=== PATIENT | male | born 1965 | race Caucasian/White ===

== ENCOUNTER 2017-09-09 16:46 | Emergency (ER) | payer OTHER, SELFPAY ==
[2017-09-09 16:55] VITALS: BP 117/78; PULSE 86; RESP 20; TEMP 37.5; O2SAT 100; BMI 26.6
--- NOTE | 2017-09-09 16:59 | DI.RAD.S_ITS ---
PROCEDURE: XR FOOT LT MIN 3V INDICATIONS: 51 year-old male with left foot injury and laceration. TECHNIQUE: 3 views of the foot were acquired. COMPARISON: None. FINDINGS: Bones: No fractures or dislocations. No suspicious bony lesions. Soft tissues: No radiopaque soft tissue foreign bodies. No tibiotalar joint effusion. Achilles tendon appears normal. IMPRESSION: No acute bony injuries of the left foot. No radiopaque soft tissue foreign bodies. Dictated by: Jl Buckley M.D. on 09/09/2017 at 17:15 Approved by: Jl Buckley M.D. on 09/09/2017 at 17:16
--- NOTE | 2017-09-09 17:01 | ED_ITS ---
HPI - Wound/Laceration General Chief Complaint: Wound/Laceration Stated Complaint: laceration to left foot, 5th digit Time Seen by Provider: 09/09/17 17:01 Source: patient and family Mode of arrival: ambulatory Limitations: no limitations History of Present Illness HPI narrative: Patient presents to the emergency department with a chief complaint of a laceration on his left 5th toe after jumping off a ladder. They are unclear what he cut his toe on. Tetanus is 7 years old. He was seen and evaluated by medics who think they can see tendon or bone. He denies other injury Onset (ago): hour(s) Extremity Location: Left: foot Place: outdoors Patient tetanus UTD: No Context: accidental Associated symptoms: pain Related Data Previous Rx's Medication Instructions Recorded cephalexin [Keflex] 500 mg PO QID 7 Days #28 cap 09/09/17 Allergies Allergy/AdvReac Type Severity Reaction Status Date / Time No Known Allergies Allergy Uncoded 07/12/17 12:52 Review of Systems Review of Systems All systems reviewed & are unremarkable except as noted in HPI and below Constitutional Denies chills, Denies fever(s), Denies lethargy and Denies weakness Eyes Denies change in vision, Denies eye discharge, Denies irritation and Denies loss of vision ENT Ears, Nose, Mouth, and Throat: Denies change in voice, Denies neck pain and Denies sore throat Cardiovascular Denies chest pain, Denies irregular heart rhythm, Denies lightheadedness, Denies palpitations, Denies dyspnea, Denies dyspnea on exertion and Denies orthopnea Respiratory Denies cough, Denies dyspnea, Denies dyspnea on exertion and Denies wheezing Gastrointestinal Gastrointestinal: Denies abdominal pain, Denies change in bowel habits, Denies diarrhea, Denies nausea and Denies vomiting Genitourinary Denies hematuria, Denies flank pain, Denies urinary incontinence and Denies urinary urgency Musculoskeletal Denies neck pain Integumentary/Breasts Denies pruritus, Denies erythema, Denies rash and Reports wounds Neurologic Denies confusion, Denies loss of vision and Denies weakness Psychiatric Denies anxiety, Denies confusion, Denies depression, Denies homicidal ideation and Denies suicidal ideation Endocrine Denies palpitations Hematologic/Lymphatic Denies easy bruising Allergic/Immunologic Denies wheezing PFSH Social History Smoking Status: Never smoker Exam Initial Vital Signs Initial Vital Signs: Vital Signs Temperature 99.5 F 09/09/17 16:55 Pulse Rate 86 09/09/17 16:55 Respiratory Rate 20 09/09/17 16:55 Blood Pressure 117/78 09/09/17 16:55 Pulse Oximetry 100 09/09/17 16:55 Const General: cooperative and well developed Nutritional Appearance: well nourished Orientation: alert, awake, oriented x3 and not confused [facility] Head: normocephalic and atraumatic Ears: external ears normal and TM's normal bilaterally Nose: external nose normal and No nasal discharge Face and sinus: sinuses nontender, face symmetric, no sinus tenderness and No dry mucous membranes Mouth: oral mucosae normal and moist mucous membranes Teeth and gingiva: dentition normal Throat: tonsils normal and uvula midline Eyes General: appearance normal, both eyes and all related structures Eyelids: eyelids normal Conjunctivae: conjunctivae normal Sclera: sclerae normal Pupils: PERRL EOM: EOM intact bilaterally Neck Neck: normal visual inspection, trachea midline, No lymphadenopathy, No midline deformity and No JVD Lymphatic: No lymphedema Chest Chest: normal inspection of the chest Cardio Rate: regular rate Rhythm: regular rhythm Heart Sounds: no click, no gallops, no murmurs and no rubs Pulses: normal peripheral pulses GI Inspection: non-distended Palpation: soft, no hepatosplenomegaly, No guarding, No pulsatile mass and No tender Auscultation: normal bowel sounds Back/Spine/Pelvis Back: No CVA tenderness Cervical Spine: cervical ROM normal and No pain with cervical ROM Thoracic/Lumbar Spine: thoracic and lumbar spine normal to inspection Skin Trauma: laceration Neuro General: alert, oriented x3, gait normal and no focal motor deficits Speech: speech normal Extrem Left lower extremity: foot (Laceration in the webspace between left 5th and 4th toe. It is on the volar surface and when viewed in a bloodless field tendon on the flexor surfaces noted. This tendon is intact) Procedures Laceration Repair Laceration 1: Side (If applicable): left Size (cm): 1.5 Description: linear Depth: simple, single layer Local Anesthetic: lidocaine 1% and with bicarb Amount of anesthesia used (mL): 3 Pre-repair: wound explored, irrigated extensively and deep structures intact Skin layer closed with: nylon Size (cm): 5-0 Number of sutures: 6 Technique: simple, interrupted Course Orders Ordered: Discontinued Medications Cefazolin Sodium (Keflex) 1 bottle MISC SEEINSTR ONE Stop: 09/09/17 18:40 Last Admin: 09/09/17 18:47 Dose: 500 mg Diphtheria/Tetanus/Acell Pertussis (Adacel) 0.5 ml IM .ONCE ONE Stop: 09/09/17 18:39 Last Admin: 09/09/17 18:40 Dose: 0.5 ml Vital Signs - 8 hr 09/09/17 16:55 09/09/17 18:34 Temperature 99.5 F Pulse Rate 86 83 Respiratory Rate 20 Blood Pressure 117/78 Blood Pressure [Left Arm] 124/79 H Pulse Oximetry 100 100 Discharge Plan Departure Patient Disposition: Home, Self-Care Clinical Impression: Laceration Discharge Date/Time: 09/09/17 19:09 Interventions: ED Discharge Assessment Last Done: 09/09/17 19:02 Instructions: DI for Laceration Repair Activity Restrictions/Additional Instructions: Please keep the wound clean and dry to the best of your ability. Please monitor for signs of infection such as redness to the skin or increasing pain. Have the sutures removed by your doctor in about 7 days. If you are unable to get into your doctor, we would be happy to remove the sutures in that same timeframe. Prescriptions: New cephalexin [Keflex] 500 mg capsule 500 mg PO QID 7 Days Qty: 28 RF: 0
[2017-09-09 18:34] VITALS: BP 124/79; PULSE 83; O2SAT 100
[2017-09-09] MEDS: TET,DIPH,PERTUSS(ACELL),VAC/PF 0.5 ML SYRINGE IM (18:40)
[2017-09-09] MEDS: cephALEXin 250 MG PREPACK 1 BOTTLE MISC (18:47)
[2017-09-09 19:02] VITALS: BP 122/74; PULSE 80; RESP 16; O2SAT 97
== END 2017-09-09 19:09 | disposition home or self-care (01) ==
PROVIDERS: Emergency Provider Emergency Medicine
DX: S91.119A Laceration without foreign body of unspecified toe without damage to nail, initial encounter (principal); W17.89XA Other fall from one level to another, initial encounter
CPT/HCPCS: 12001; 73630; 90471; 99283; 90715

== ENCOUNTER → 2021-07-15 13:03 | Outpatient (CLI) | payer OTHER, SELFPAY ==
[2021-07-15 20:01] LABS: Free T3, Triiodothyronine Free 5.33 pg/mL (2.77-5.27)
[2021-07-15 20:15] LABS: TSH w/ Reflex to FT4 0.83 uIU/mL (0.47-4.68)
== END ==
PROVIDERS: PCP Physician Assistant Medical; Visit Provider Physician Assistant Medical
DX: E05.90 Thyrotoxicosis, unspecified without thyrotoxic crisis or storm (principal)
CPT/HCPCS: 84443; 84481

== ENCOUNTER → 2022-12-21 13:56 | Outpatient (CLI) | payer SELFPAY | PROVIDERS: PCP Family Medicine; Visit Provider Family Medicine | DX: E03.9 Hypothyroidism, unspecified (principal) | CPT/HCPCS: 84439; 84443 ==